=== PATIENT | male | born 1980 | race Caucasian/White ===

== ENCOUNTER 2016-12-19 09:06 | Emergency (ER) | payer SELFPAY ==
[2016-12-19 09:12] VITALS: BP 154/86; BMI 47.5
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
--- NOTE | 2016-12-19 10:47 | CT ---
CT chest without contrast Indication: [facility] December 04, 2016 with persistent right-sided rib pain. Technique: Helical CT images of the chest were obtained without contrast. Reformatted images in the coronal and sagittal planes were also generated for review. Comparison: None Findings: There is a mildly displaced fracture of the anterior right 7th rib. The 8th-12 ribs are only partial ly included in the field of view. No additional rib fractures are identified. There is a nondisplace d fracture of the inferior manubrium, which extends into the sternomanubrial joint (best appreciated on sagittal image 52, series 7). No additional fracture or subluxation is identified. The heart and mediastinum appear normal. No significant mediastinal hematoma or pericardial effusion is seen. The thoracic aorta and proximal great vessels appear grossly normal for noncontrast techni que. The central airways are patent. There is no lymphadenopathy. Apart from subsegmental atelectasis in bilateral lower lobes, the lungs appear clear without focal c onsolidation, contusion or laceration. No pleural effusion or pneumothorax is identified. Limited noncontrast images of the upper abdomen demonstrate no acute abnormality. Impression: 1. Mildly displaced fracture of the right anterior 7th rib. No additional rib fractures are identifi ed, although the 8th-12th ribs are only partially visualized bilaterally. 2. Nondisplaced fracture of the inferior manubrium with intra-articular extension into the sternoman ubrial joint. No dislocation or significant retrosternal hematoma. Reported By:
== END 2016-12-19 11:18 | disposition home or self-care (01) ==
LOC: ER 09:36
DX: S22.21XA Fracture of manubrium, initial encounter for closed fracture (principal); S22.41XA Multiple fractures of ribs, right side, initial encounter for closed fracture; V89.2XXA Person injured in unspecified motor-vehicle accident, traffic, initial encounter
CPT/HCPCS: 71250; 99282; 99283